=== PATIENT | male | born 1995 | race Caucasian/White ===

== ENCOUNTER 2022-09-09 13:22 | Emergency (ER) | payer BC ==
--- OUTSIDE RECORDS SUMMARY | 2022-09-09 13:40 | XMS REPORT | Continuity of Care Document ---
:1995 Author Organization [facility] t Address [address] [place] [address] [place] [id number] Care Team Providers Name Role Phone PCP, PATIENT DOES NOT HAVE A Primary Care Physician UnavailЕКАТЕРИНА Bonilla Attending Clinician Unavailable Екатерина Joel MD Attending Clinician Unknown, Attending Attending Clinician Unavailable Doctor Unassigned, [place] Attending Clinician Unavailable RAPHAEL CARTAGENA Attending Clinician Unavailable Payers Payer Name Policy Type Policy Number Effective Date Expiration Date S ource [facility] - [id number] 2017 00:00:00 OUT OF STATE BS 2 [id number] 2022 00:00:00 Problems This patient has no known problems. Allergies, Adverse Reactions, Alerts Allergy Allergy Status Severity Reaction(s) Onset Inactive Treating Comm ents Source Name Type Date Date Clinician NO KNOWN Drug Active Univers ALLERGIE Class ity of S [facility] Social History Social Habit Start Date Stop Date Quantity Comments Source Gender identity Universit y [facility] Sexual orientation Univer sity [facility] History of Social 2022-09-08 2022-09-08 Univers ity of function 00:00:00 00:00:00 [facility] History of tobacco 2021-02-09 Cigarette Smoker University of use 00:00:00 [facility] Sex Assigned At [birth year] Universit y of 00:00:00 00:00:00 [facility] Smoking Status Start Date Stop Date Source Tobacco smoking [facility] [place] consumption unknown Medical Bran ch Ex-smoker 2022-08-25 00:00:00 2022-08-25 [place] o f [place] 00:00:00 Medical Branch Medications Ordered Filled Start Stop Current Ordering Indication Dosage Frequency Signature Comments Components Source Medication Medication Date Date Medication? Clinician (SIG) Name Name ibuprofen Yes [id number] 600mg Take 1 Univers 600 mg 7-17 tablet by ity of tablet 00:00: mouth [place] 00 every 6 Medical (six) Branch hours as needed for Pain (scale 1-3) or Pain (scale 4-6). cyclobenzap Yes [id number] 5mg Take 1 Univers rine 5 mg 7-17 tablet by ity o f tablet 00:00: mouth at [place] 00 bedtime. Medical Branch ibuprofen Yes [id number] 600mg Take 1 Univers 600 mg 7-17 tablet by ity of tablet 00:00: mouth [place] 00 every 6 Medical (six) Branch hours as needed for Pain (scale 1-3) or Pain (scale 4-6). cyclobenzap Yes [id number] 5mg Take 1 Univers rine 5 mg 7-17 tablet by ity o f tablet 00:00: mouth at [place] 00 bedtime. Medical Branch ibuprofen Yes [id number] 600mg Take 1 Univers 600 mg 7-17 tablet by ity of tablet 00:00: mouth [place] 00 every 6 Medical (six) Branch hours as needed for Pain (scale 1-3) or Pain (scale 4-6). cyclobenzap Yes [id number] 5mg Take 1 Univers rine 5 mg 7-17 tablet by ity o f tablet 00:00: mouth at [place] 00 bedtime. Medical Branch ibuprofen Yes [id number] 600mg Take 1 Univers 600 mg 7-17 tablet by ity of tablet 00:00: mouth [place] 00 every 6 Medical (six) Branch hours as needed for Pain (scale 1-3) or Pain (scale 4-6). cyclobenzap Yes [id number] 5mg Take 1 Univers rine 5 mg 7-17 tablet by ity o f tablet 00:00: mouth at [place] [address] bedtime. Medical Branch ibuprofen Yes [id number] 600mg Take 1 Univers 600 mg 7-17 tablet by ity of tablet 00:00: mouth [place] 00 every 6 Medical (six) Branch hours as needed for Pain (scale 1-3) or Pain (scale 4-6). cyclobenzap Yes [id number] 5mg Take 1 Univers rine 5 mg 7-17 tablet by ity o f tablet 00:00: mouth at [place] 00 bedtime. Medical Branch cyclobenzap 2018-02 Yes [id number] 10mg Take 1 Univers rine 10 mg 2-23 tablet by ity of tablet 00:00: mouth 3 [place] 00 (three) Medical times Branch daily as needed for Muscle Spasms. cyclobenzap 2018-02 Yes [id number] 10mg Take 1 Univers rine 10 mg 2-23 tablet by ity of tablet 00:00: mouth 3 [place] (three) Medical times Branch daily as needed for Muscle Spasms. cyclobenzap 2018-02 Yes [id number] 10mg Take 1 Univers rine 10 mg 2-23 tablet by ity of tablet 00:00: mouth 3 [place] 00 (three) Medical times Branch daily as needed for Muscle Spasms. cyclobenzap 2018-02 Yes [id number] 10mg Take 1 Univers rine 10 mg 2-23 tablet by ity of tablet 00:00: mouth 3 [place] 00 (three) Medical times Branch daily as needed for Muscle Spasms. cyclobenzap 2018-02 Yes [id number] 10mg Take 1 Univers rine 10 mg 2-23 tablet by ity of tablet 00:00: mouth 3 [place] 00 (three) Medical times Branch daily as needed for Muscle Spasms. cyclobenzap 2018-02 Yes [id number] 10mg Take 1 Univers rine 10 mg 2-23 tablet by ity of tablet 00:00: mouth 3 [place] 00 (three) Medical times Branch daily as needed for Muscle Spasms. naproxen 2017-02 Yes 500mg Take 1 Univer s (NAPROSYN) 0-04 tablet by ity of 500 mg 00:00: mouth 2 [place] tablet 00 (two) Medical times Branch daily with meals. naproxen 2017-02 Yes 500mg Take 1 Univer s (NAPROSYN) 0-04 tablet by ity of 500 mg 00:00: mouth 2 [place] tablet 00 (two) Medical times Branch daily with meals. naproxen 2017-02 Yes 500mg Take 1 Univer s (NAPROSYN) 0-04 tablet by ity of 500 mg 00:00: mouth 2 [place] tablet 00 (two) Medical times Branch daily with meals. naproxen 2017-02 Yes 500mg Take 1 Univer s (NAPROSYN) 0-04 tablet by ity of 500 mg 00:00: mouth 2 [place] tablet 00 (two) Medical times Branch daily with meals. naproxen 2017-02 Yes 500mg Take 1 Univer s (NAPROSYN) 0-04 tablet by ity of 500 mg 00:00: mouth 2 [place] tablet 00 (two) Medical times Branch daily with meals. traMADOL 50 2017-02 Yes 50mg Take 1 Univ ers mg tablet 0-04 tablet by ity o f 00:00: mouth [place] 00 every 6 Medical (six) Branch hours as needed for Pain (scale 4-6). naproxen 2017-02 Yes 500mg Take 1 Univer s (NAPROSYN) 0-04 tablet by ity of 500 mg 00:00: mouth 2 [place] tablet 00 (two) Medical times Branch daily with meals. traMADOL 50 2017-02 50mg Take 1 Uni vers mg tablet 0-04 07-17 tablet by ity of 00:00: 00:00 mouth [place] 00 :00 every 6 Medical (six) Branch hours as needed for Pain (scale 4-6). Vital Signs Vital Name Observation Time Observation Value Comments Source Systolic blood 2022-09-08 14:11:00 139 mm[Hg] Univer sity [facility] Diastolic blood 2022-09-08 14:11:00 84 mm[facility]Hg[facility] 2022-09-08 14:11:00 89 /min [facility] Body temperature 2022-09-08 14:11:00 36.89 Shanti [facility] Respiratory rate 2022-09-08 14:11:00 16 /min [facility] Body height 2022-09-08 14:11:00 188 cm [facility] Body weight 2022-09-08 14:11:00 156.151 kg [facility] BMI 2022-09-08 14:11:00 44.20 kg/m2 [facility] Oxygen saturation in 2022-09-08 14:11:00 97 /min University of Arterial blood by [facility] Pulse oximetry Branch Systolic blood 2022-08-25 22:54:00 109 mm[Hg] Univer sity of pressure [facility] Diastolic blood 2022-08-25 22:54:00 76 mm[Hg] Unive rsity of [facility] Heart rate 2022-08-25 22:54:00 91 /min [facility] Body temperature 2022-08-25 22:54:00 36.67 Shanti [facility] 2022-08-25 22:54:00 14 /min [facility] Body height 2022-08-25 22:54:00 188 cm [facility] Body weight 2022-08-25 22:54:00 155.448 kg [facility] BMI 2022-08-25 22:54:00 44.00 kg/m2 [facility] Oxygen saturation in 2022-08-25 22:54:00 96 /min [facility] Arterial blood by [facility] Pulse oximetry Branch BMI 2022-03-25 20:40:00 42.37 kg/m2 Asha garciabo - External Body height 2022-03-25 20:40:00 188 cm Asha garciabo - External Body weight 2022-03-25 20:40:00 149.687 kg Asha garciabold - External Procedures Procedure Date / Time Performed Performing Clinician Sourc e XR LUMBAR SPINE 2 VW 2022-08-25 23:15:46 Екатерина Joel [facility] ASSIGNMENT OF BENEFITS 2022-08-25 22:41:12 Doctor Unassigned, No [facility] Encounters Start End Encounter Admission Attending Care Care Encounter Source Date/Time Date/Time Type Type Clinicians Facility Department ID 2022-09-08 2022-09-08 Outpatient R NICOLE JOEL [facility] [id number] [facility] 09:00:00 09:25:37 ЕКАТЕРИНА heath [facility] 2022-09-08 2022-09-08 Urgent Екатерина Joel [facility] 1.2.840.114 [id number] Univers 09:00:00 09:25:37 Care Unknown, Attending HEALTH [id number] ity of [facility] [id number] Fadi as ROXANNE?BLEA [id number] [facility] [address] [facility] OFFICE [facility] 2022-09-08 2022-09-08 Marbella Joel [facility] [id number] Univers 00:00:00 00:00:00 (Out) [facility] [id number] it y of [facility] [id number] Fadi as ROXANNE?BLEA [id number] [address] OFFICE [facility] 2022-08-25 2022-08-25 Outpatient R BEAU [facility] [id number] Univers 18:03:58 23:59:00 ЕКАТЕРИНА ity of [facility] 2022-08-25 2022-08-25 [facility] [id number] Univers 18:03:58 23:59:00 Encounter [facility] [id number] ity of [place] [id number] Fadi as ROXANNE?BLEA [id number] [facility] [address] [facility] OFFICE [facility] 2022-08-25 2022-08-25 [facility] Beau Екатерина [facility] [id number] [id number] Univers 17:40:00 18:00:00 Care Unknown, Attending HEALTH [id number] ity of [place] [id number] Fadi as ROXANNE?BLEA [id number] [address] OFFICE [facility] 2022-08-25 2022-08-25 Orders Doctor ADIA [id number] Univers 00:00:00 00:00:00 Only Unassigned, FOREST [id number] ity of [place] [facility] [id number] Fadi as [id number] [address] 2022-08-25 2022-08-25 [facility] [id number] Univers 00:00:00 00:00:00 (Out) [facility] [id number] it y of [facility] [id number] Fadi as ROXANNE?BLEA [id number] [facility] [address] OFFICE [facility] 2022-03-25 2022-03-25 Outpatient ASHA CARTAGENA [id number] Asha 14:20:00 14:20:00 RAPHAEL durán 2022-03-25 2022-03-25 Outpatient ASHA SHI [id number] Asha 13:50:00 13:50:00 Seybol d 2022-03-25 2022-03-25 Outpatient SAHA CARTAGENA [id number] Asha 00:00:00 00:00:00 RAPHAEL durán Results This patient has no known results.
[2022-09-09 14:00] LABS: Hematocrit 44.3 % (39.6-49.0); Lymphocytes % 25.3 % (15.3-44.8); MCV 84.5 fL (80-100); MPV 7.2 fL (7.6-11.3); RBC Red Blood Cell Count 5.24 M/uL (4.33-5.43)
[2022-09-09 14:16] LABS: Albumin 3.5 g/dL (3.4-5.0); Potassium 4.1 mEq/L (3.5-5.1); Protein, Total 7.8 g/dL (6.4-8.2)
--- NOTE | 2022-09-09 16:18 | ER ---
Nurse's Notes [facility] Name: Armando Park Age: 27 yrs Sex: Male : 1995 Arrival Date: 09/09/2022 Time: 13:22 Bed 12 Private MD: Diagnosis: Pain in left lower leg;Unspecified symptoms and signs involving the musculoskeletal system-SOLEUS STRAIN Presentation: 09/09 13:37 Chief complaint: Patient states: left calf pain since Thursday , he was getting into the back of truck, lifting leg over tailgate and felt a pop in hi calf .He can walk on it but it's painful. Coronavirus screen: At this time, the client does not indicate any symptoms associated with coronavirus-19. Ebola Screen: Patient negative for fever greater than or equal to 101.5 degrees Fahrenheit, and additional compatible Ebola Virus Disease symptoms Patient denies exposure to infectious person. Initial Sepsis Screen: Does the patient meet any 2 criteria? No. Patient's initial sepsis screen is negative. Does the patient have a suspected source of infection? No. Patient's initial sepsis screen is negative. Risk Assessment: Do you want to hurt yourself or someone else? Patient reports no desire to harm self or others. Onset of symptoms was September 07, 2022. 13:37 Method Of Arrival: Wheelchair 13:37 Acuity: HENRI 3 iw Historical: - Allergies: 13:39 No Known Allergies; iw - Home Meds: 13:39 None [Active]; iw - PMHx: 13:39 None; iw - Immunization history:: Adult Immunizations unknown. - Family history:: not pertinent. - Social history:: Smoking status: unknown. Screenin:07 [facility] ED Fall Risk Assessment (Adult) History of falling in the last 3 months, iw including since admission. Abuse screen: Denies threats or abuse. Denies injuries from another. Nutritional screening: No deficits noted. Tuberculosis screening: No symptoms or risk factors identified. Assessment: 14:06 General: Appears in no apparent distress. Behavior is calm, cooperative. Pain: iw Complains of pain in left calf. Neuro: Level of Consciousness is awake, alert, obeys commands, Oriented to person, place, time, situation, Moves all extremities. Full function. Cardiovascular: Patient's skin is warm and dry. Respiratory: Respiratory effort is even, unlabored, Respiratory pattern is regular, symmetrical. Derm: Skin is intact, is healthy with good turgor. Musculoskeletal: Reports pain in left calf. Vital Signs: 13:40 BP 151 / 89; Pulse 87; Resp 16; Temp 98; Pulse Ox 98% ; Weight 156.04 kg; Height 6 ft. iw 2 in. ; Pain 0/10; 17:30 BP 148 / 75; Pulse 89; Resp 16; Temp 98; Pulse Ox 100% on R/A; iw 13:40 Body Mass Index 44.17 (156.04 kg, 187.96 cm) iw 13:40 Pain Scale: Adult iw ED Course: 13:24 Patient arrived in ED. rg4 13:24 Toby Ferreira MD is Attending Physician. [facility] 13:38 Triage completed. iw 13:39 Edita Davis, RN is Primary Nurse. iw 13:39 Arm band placed on. iw 13:54 Comprehensive Metabolic Panel Sent. iw 13:54 CBC with Diff Sent. iw 14:07 Patient has correct armband on for positive identification. Provided Education on: need iw for MRI . 15:51 Ankle Left Wo Cont In Process Unspecified. EDMS 16:13 Primitivo Paez MD is Referral Physician. [facility] 17:38 No provider procedures requiring assistance completed. IV discontinued, intact, iw bleeding controlled, No redness/swelling at site. Pressure dressing applied. Administered Medications: No medications were administered Medication: 14:07 VIS not applicable for this client. iw Outcome: 16:18 Discharge ordered by . [facility] 17:38 Discharged to home ambulatory, with family. iw 17:38 Condition: good 17:38 Discharge instructions given to patient, Instructed on discharge instructions, follow up and referral plans. Demonstrated understanding of instructions, follow-up care, medications, Prescriptions given X 2. 17:39 Patient left the ED. cm10 Signatures: Dispatcher [employer] EDVA Toby Ferreira MD MD cha Williams, Irene, RN LEVAR iw Nola Aguirre 4 Hermelinda Caicedo RN RN 10
--- NOTE | 2022-09-09 16:18 | EDPHYS ---
Physician Documentation [facility] Name: Armando Park Age: 27 yrs Sex: Male : 1995 Arrival Date: 09/09/2022 Time: 13:22 Bed 12 Private MD: ED Physician Toby Ferreira HPI: 09/09 13:37 This 27 yrs old Male presents to ER via Unassigned with complaints of Knee sebas Pain. 13:37 The patient presents with decreased range of motion, pain, that is acute. The sebas complaints affect the left calf. Context: The problem was sustained outdoors, resulted from a mis-step, the patient can partially bear weight, must have assistance, Problem is a result from a previous injury: No. Onset: The symptoms/episode began/occurred just prior to arrival. Modifying factors: The symptoms are alleviated by nothing. remaining still, the symptoms are aggravated by movement. Associated signs and symptoms: The patient has no apparent associated signs or symptoms. Severity of symptoms: At their worst the symptoms were moderate, in the emergency department the symptoms are unchanged. The patient has not experienced similar symptoms in the past. Historical: - Allergies: 13:39 No Known Allergies; iw - Home Meds: 13:39 None [Active]; iw - PMHx: 13:39 None; iw - Immunization history:: Adult Immunizations unknown. - Family history:: not pertinent. - Social history:: Smoking status: unknown. ROS: 13:37 Constitutional: Negative for fever, chills, and weight loss, Eyes: Negative for injury, sebas pain, redness, and discharge, ENT: Negative for injury, pain, and discharge, Neck: Negative for injury, pain, and swelling, Cardiovascular: Negative for chest pain, palpitations, and edema, Respiratory: Negative for shortness of breath, cough, wheezing, and pleuritic chest pain, Abdomen/GI: Negative for abdominal pain, nausea, vomiting, diarrhea, and constipation, Back: Negative for injury and pain, : Negative for injury, bleeding, discharge, and swelling, Skin: Negative for injury, rash, and discoloration, Neuro: Negative for headache, weakness, numbness, tingling, and seizure, Psych: Negative for depression, anxiety, suicide ideation, homicidal ideation, and hallucinations, Allergy/Immunology: Negative for hives, rash, and allergies, Endocrine: Negative for neck swelling, polydipsia, polyuria, polyphagia, and marked weight changes, Hematologic/Lymphatic: Negative for swollen nodes, abnormal bleeding, and unusual bruising. 13:37 MS/extremity: Positive for injury or acute deformity, pain, swelling, tenderness, of the right calf. Exam: 13:37 Constitutional: This is a well developed, well nourished patient who is awake, alert, sebas and in no acute distress. Head/Face: Normocephalic, atraumatic. Eyes: Pupils equal round and reactive to light, extra-ocular motions intact. Lids and lashes normal. Conjunctiva and sclera are non-icteric and not injected. Cornea within normal limits. Periorbital areas with no swelling, redness, or edema. ENT: Nares patent. No nasal discharge, no septal abnormalities noted. Tympanic membranes are normal and external auditory canals are clear. Oropharynx with no redness, swelling, or masses, exudates, or evidence of obstruction, uvula midline. Mucous membranes moist. Neck: Trachea midline, no thyromegaly or masses palpated, and no cervical lymphadenopathy. Supple, full range of motion without nuchal rigidity, or vertebral point tenderness. No Meningismus. Chest/axilla: Normal chest wall appearance and motion. Nontender with no deformity. No lesions are appreciated. Cardiovascular: Regular rate and rhythm with a normal S1 and S2. No gallops, murmurs, or rubs. Normal PMI, no JVD. No pulse deficits. Respiratory: Lungs have equal breath sounds bilaterally, clear to auscultation and percussion. No rales, rhonchi or wheezes noted. No increased work of breathing, no retractions or nasal flaring. Abdomen/GI: Soft, non-tender, with normal bowel sounds. No distension or tympany. No guarding or rebound. No evidence of tenderness throughout. Back: No spinal tenderness. No costovertebral tenderness. Full range of motion. Male : Normal genitalia with no discharge or lesions. Skin: Warm, dry with normal turgor. Normal color with no rashes, no lesions, and no evidence of cellulitis. Neuro: Awake and alert, GCS 15, oriented to person, place, time, and situation. Cranial nerves II-XII grossly intact. Motor strength 5/5 in all extremities. Sensory grossly intact. Cerebellar exam normal. Normal gait. Psych: Awake, alert, with orientation to person, place and time. Behavior, mood, and affect are within normal limits. 13:37 Musculoskeletal/extremity: ROM: limited active range of motion due to pain, limited passive range of motion due to pain, Circulation is intact in all extremities. Sensation intact. Compartment Syndrome exam of affected extremity: is normal. Joints: All joints appear normal with full range of motion. Weight bearing: can bear weight with assistance only, uses crutch, DVT Exam: negative Homans' sign noted on exam, no appreciated bluish discoloration, no erythema, no increased warmth, pain, swelling, tenderness. Vital Signs: 13:40 BP 151 / 89; Pulse 87; Resp 16; Temp 98; Pulse Ox 98% ; Weight 156.04 kg; Height 6 ft. iw 2 in. ; Pain 0/10; 17:30 BP 148 / 75; Pulse 89; Resp 16; Temp 98; Pulse Ox 100% on R/A; iw 13:40 Body Mass Index 44.17 (156.04 kg, 187.96 cm) iw 13:40 Pain Scale: Adult iw MDM: 13:24 Patient medically screened. [facility] 13:42 Differential diagnosis: contusion, abrasion, tendonitis. Data reviewed: vital signs, [facility] nurses notes, lab test result(s), radiologic studies, MRI. Consideration of Admission/Observation Escalation of care including admission/observation considered. I considered the following discharge prescriptions or medication management in the emergency department Medications were administered in the Emergency Department. See MAR. Test considered but Not performed: Ultrasound NO DVT STUDIES. Care significantly affected by the following chronic conditions: Obesity. Counseling: I had a detailed discussion with the patient and/or guardian regarding: the historical points, exam findings, and any diagnostic results supporting the discharge/admit diagnosis, lab results, radiology results, the need for outpatient follow up, for definitive care, a family practitioner, a orthopedic surgeon. 09/09 13:34 Order name: CBC with Diff; Complete Time: 15:20 [facility] 09/09 13:34 Order name: Comprehensive Metabolic Panel; Complete Time: 15:20 [facility] 09/09 15:51 Order name: Ankle Left Wo Cont EDMS 09/09 16:11 Order name: Crutch Training [facility] 09/09 17:09 Order name: Adriano Wrap [facility] Administered Medications: No medications were administered Disposition Summary: 09/09/22 16:18 Discharge Ordered Location: Home [facility] Problem: new sebas Symptoms: have improved sebas Condition: Stable sebas Diagnosis - Pain in left lower leg sebas - Unspecified symptoms and signs involving the musculoskeletal system - SOLEUS sebas STRAIN(09/09/22 17:08) Followup: sebas - With: Private Physician - When: 2 - 3 days - Reason: Recheck today's complaints, Continuance of care, Re-evaluation by your physician Followup: sebas - With: Primitivo Paez MD - When: 2 - 3 days - Reason: Recheck today's complaints, Re-evaluation by your physician Discharge Instructions: - Discharge Summary Sheet sebas - Muscle Strain sebas - Musculoskeletal Pain sebas - How to Use Cold Therapy, Hych-ng-Zsub sebas - Muscle Strain, Eeod-jn-Tfew sebas Forms: - Work release form sebas - Medication Reconciliation Form sebas - Thank You Letter sebas - Antibiotic Education sebas - Prescription Opioid Use sebas - Patient Portal Instructions [facility] Prescriptions: - acetaminophen-codeine 300-30 mg Oral tablet - take 2 tablet by ORAL route 3 times per day as needed for pain; 24 tablet; sebas Refills: 0, Product Selection Permitted - Diclofenac Sodium 75 mg Oral Tablet Sustained Release - take 1 tablet by ORAL route 2 times per day; 30 tablet; Refills: 0, Product [facility] Selection Permitted Signatures: Dispatcher [employer] Toby Padilla MD MD cha Williams, Irene RN RN iw Corrections: (The following items were deleted from the chart) 15:51 13:38 Lower Extremity Wo ordered. [facility] 17:08 16:11 Splint - Ankle: Orthoglass: Posterior ordered. on license of [facility] 17: 16:18 Unspecified symptoms and signs involving the musculoskeletal system - LEFT MEDIAL sebas GASTROCNEMIUS TEAR sebas
--- NOTE | 2022-09-09 17:04 | RAD REPORT ---
EXAM DESCRIPTION: MRI - Ankle Left Wo Cont - 09/09/2022 4:12 pm CLINICAL HISTORY: Ankle pain COMPARISON: none TECHNIQUE: Axial, sagittal, and coronal magnetic images of the left Achilles tendon performed FINDINGS: Artifact from a metallic fragment results in limited evaluation of the calf 13 centimeters above the ankle and superiorly. The visualized Achilles tendon is intact with normal signal. Mild abnormal signal is present within the distal soleus muscle consistent with strain. No fracture seen. IMPRESSION: Visualized Achilles tendon is intact Mild strain soleus muscle
[2022-09-09 17:44] VITALS: BP 151/89; TEMP 98; O2SAT 98
== END 2022-09-09 17:39 | disposition home or self-care (01) ==
LOC: ER 13:22
DX: S86.812A Strain of other muscle(s) and tendon(s) at lower leg level, left leg, initial encounter (principal)
CPT/HCPCS: 36415; 80053; 85025